=== PATIENT | female | born 1970 | race African-American/Black ===

== ENCOUNTER 2022-10-30 00:02 | Emergency (ER) | payer MEDICAID, OTHER ==
[~2022-10-30] VITALS: Ht 157.5 cm; Wt 80.0 kg
[2022-10-30 00:10] VITALS: BP 132/69; PULSE 85; RESP 18; TEMP 98.3; O2SAT 97
[2022-10-30] MEDS ORDERED: BACL-141 MT (06:03)
[2022-10-30] MEDS ORDERED: IBUP-2029 MT (06:03)
== END 2022-10-30 07:02 | disposition home or self-care (01) ==
LOC: ER 00:02
DX: S13.9XXA Sprain of joints and ligaments of unspecified parts of neck, initial encounter (principal); S39.012A Strain of muscle, fascia and tendon of lower back, initial encounter; I10 Essential (primary) hypertension; Z98.890 Other specified postprocedural states; V49.9XXA Car occupant (driver) (passenger) injured in unspecified traffic accident, initial encounter; Y93.89 Activity, other specified; Y92.89 Other specified places as the place of occurrence of the external cause; Y99.8 Other external cause status
CPT/HCPCS: 72100; 99284